=== PATIENT | male | born 1990 | race Hispanic/Latino ===

== ENCOUNTER 2019-05-06 00:01 | Emergency (ER) | payer SELFPAY ==
[2019-05-06] MEDS ORDERED: diphenhydrAMINE 50 MG/ML VIAL ONE ×2 (00:17→01:31)
[2019-05-06] MEDS ORDERED: EPINEPHrine 1 MG/ML AMP ONE (00:17)
[2019-05-06] MEDS ORDERED: methylPREDNISolone Sod Succ/PF 125 MG/2 ML VIAL ONE (00:17)
== END 2019-05-06 03:38 | disposition home or self-care (01) ==
LOC: ERS 00:01
DX: T78.09XA Anaphylactic reaction due to other food products, initial encounter (principal)
CPT/HCPCS: 96372; 96374; 96375; 96376; J0171; J1200; J2930